=== PATIENT | female | born 1945 | race Caucasian/White ===

== ENCOUNTER 2017-06-12 11:41 | Emergency (ER) | payer OTHER ==
[~2017-06-12] VITALS: Ht 149.9 cm; Wt 68.6 kg
[2017-06-12 12:42] LABS: HEMATOCRIT 43.5 % (36.0-46.0); MCH 31.7 PG (29.0-34.0); MCHC 33.8 G/DL (30.0-36.0); MEAN PLAT.VOLUME 10.7 uM^3 (9.5-12.4); PLATELET COUNT 325 K/uL (156-360); RBC DIS.WIDTH-CV 13.7 % (11.8-14.6); RBC DIS.WIDTH-SD 47.3 % (39-53); RED BLOOD COUNT 4.63 M/uL (3.80-5.20); WHITE BLOOD COUNT 14.8 K/uL (4.1-10.2)
[2017-06-12 12:44] LABS: CHLORIDE 100 mEq/L (99-109); SODIUM 137 mEq/L (136-147)
[2017-06-12 12:46] LABS: GLUCOSE 116 mg/dL (70-99)
[2017-06-12 12:48] LABS: ANION GAP 12 MEQ/L (2-14)
[2017-06-12 12:50] LABS: GFR ESTIMATE (CALCULATED) > 59 mL/min/
[2017-06-12 12:51] LABS: UREA NITROGEN (BUN) 12 mg/dL (9-23)
[2017-06-12 13:02] LABS: ADD MIUA? YES; BILIRUBIN NEGATIVE; BLOOD LARGE; COLOR YELLOW ((YELLOW)); GLUCOSE (STRIP) NEGATIVE; KETONES NEGATIVE; LEUKOCYTES LARGE; NITRITE NEGATIVE; PROTEIN (STRIP) 100; SPECIFIC GRAVITY 1.016 (1.000-1.030); UROBILINOGEN 0.2 MG/DL (0.2-1.0)
[2017-06-12 13:15] LABS: WHITE BLOOD CELLS TNTC /HPF (0-5)
[2017-06-12 13:16] LABS: EPITHELIAL CELLS 1+ /HPF
[2017-06-12 13:17] LABS: BACTERIA 1+ /HPF; CASTS PRESENT /LPF; HYALINE CASTS 0-5 /LPF; MUCUS 1+ /LPF; UCUL ADDED? YES
[2017-06-12] MEDS ORDERED: PYRIDIUM100 MG PO (16:40)
[2017-06-12] MEDS ORDERED: CIPRO500 MG PO (16:40)
[2017-06-12 16:52] VITALS: BP 132/61
== END 2017-06-12 16:55 | disposition home or self-care (01) ==
LOC: EME 11:41
DX: N39.0 Urinary tract infection, site not specified (principal); F17.200 Nicotine dependence, unspecified, uncomplicated; Z87.440 Personal history of urinary (tract) infections; Z85.42 Personal history of malignant neoplasm of other parts of uterus; Z88.2 Allergy status to sulfonamides; Z88.0 Allergy status to penicillin
CPT/HCPCS: 80048; 81003; 85027; 87077; 87086; 87186; 99281; 99285